=== PATIENT | female | born 1950 | race Two or more races ===

== ENCOUNTER 2024-02-22 08:38 | Emergency (ER) | payer OTHER ==
[~2024-02-22] VITALS: Ht 157.5 cm; Wt 49.0 kg
[~2024-02-22 08:38] MED LIST: PREVACID15 MG
[2024-02-22] MEDS ORDERED: TRAMADOL HCL E100 M1 (08:50)
[2024-02-22] MEDS ORDERED: RINGERS SOLUTION,LACTATED 1,000 ML IV STA (09:09)
[2024-02-22] MEDS ORDERED: MEPERIDINE HCL/PF 50 MG/ML VIAL IM STA (09:11)
[2024-02-22] MEDS ORDERED: PIPERACILLIN/TAZOBACTAM SODIUM 3.375 GM in 0.9 % SODIUM CHLORIDE 100 ML IV STA (09:11)
[2024-02-22] MEDS ORDERED: 0.9 % SODIUM CHLORIDE 1,000 ML IV STA (09:51)
[2024-02-22] MEDS ORDERED: ONDANSETRON HCL 2 MG/ML VIAL IV STA (09:53)
[2024-02-22] MEDS ORDERED: FAMOtidine 10 MG/ML (4ML VIAL) IV STA (09:54)
[2024-02-22] MEDS ORDERED: METOCLOPRAMIDE HCL 10 MG in DEXTROSE 5 % IN WATER 50 ML IV ONE (10:00)
[2024-02-22] MEDS ORDERED: ONDANSETRON HCL 2 MG/ML VIAL ONE (10:03)
[2024-02-22] MEDS ORDERED: FAMOTIDINE/PF 20 MG/2 ML VIAL ONE (10:03)
[2024-02-22] MEDS ORDERED: METOCLOPRAMIDE HCL 5 MG/ML VIAL ONE (10:03)
[2024-02-22 10:39] LABS: HEMOGLOBIN 10.9 g/dL (12.0-15.00); MEAN CELL VOLUME 85.4 fL (80.00-100.00); MEAN CORPUSCULAR HEMOGLOBIN 28.1 pg (27.00-32.0); MEAN CORPUSCULAR HGB CONC 32.9 g/dl (32.0-36.0); PLATELET COUNT 441 K/uL (150-450); RED BLOOD COUNT 3.86 M/uL (4.00-6.00); RED CELL DISTRIBUTION WIDTH 14.9 % (11.5-14.5)
[2024-02-22 11:18] LABS: URINE APPEARANCE Clear; URINE BILIRRUBIN Negative (NEGATIVE); URINE BLOOD Negative; URINE COLOR Yellow; URINE GLUCOSE Negative (NEGATIVE); URINE LEUKOCYTE Negative; URINE NITRATE Negative; URINE PROTEIN Negative (NEGATIVE); URINE UROBILINOGEN 0.2 E.U./dl
[2024-02-22 11:32] LABS: URINE BACTERIA 8.5 uL (0.0-1933); URINE EPITHELIAL CELLS 8.1 uL (0.0-38.8); URINE RBC 4.5 uL (0.0-20.8); URINE WBC 3.6 uL (0.0-23.2)
[2024-02-22 11:36] LABS: URINE CAST 0.14 uL (0.0-1.40); URINE KETONE 40 (NEGATIVE)
[2024-02-22 11:42] LABS: ALBUMIN 3.7 gm/dL (3.4-5.0); BILIRUBIN TOTAL 0.57 mg/dL (0.3-1.2); BILIRUBIN,CONJUGATED 0.17 mg/dL (0.0-0.2); BILIRUBIN,UNCONJUGATED 0.4 mg/dL (0.0-0.6); CREATININE SERUM 0.8 mg/dL (0.55-1.02); GFR 70.51; POTASSIUM 3.11 mEq/L (3.5-5.1); TOTAL PROTEIN 8.4 gm/dL (6.4-8.2)
[2024-02-22] MEDS ORDERED: MORPHINE SULFATE 4 MG/ML VIAL IV STA (15:27)
== END 2024-02-22 15:17 | disposition home or self-care (01) ==
LOC: ER 08:38
PROVIDERS: General Practice
DX: R10.9 Unspecified abdominal pain (principal); K66.0 Peritoneal adhesions (postprocedural) (postinfection)